=== PATIENT | male | born 1980 | race Asian ===

== ENCOUNTER → 2018-09-26 | Outpatient (CLI) | payer OTHER | LOC: LAB 16:00 | PROVIDERS: ATTEND Family Medicine | DX: Z02.79 Encounter for issue of other medical certificate (principal) | CPT/HCPCS: 36415; 86480; 86592; 87491; 87591 ==

== ENCOUNTER → 2018-11-21 | Outpatient (CLI) | payer OTHER ==
--- NOTE | 2018-11-21 15:37 | RADIOLOGY IMAGING REPORT ---
FACILITY: [facility] [place] PATIENT NAME: Anoop Aparicio : 1980 MR: [id number] V: [id number] EXAM DATE: ORDERING PHYSICIAN: ALANNA BAXTER TECHNOLOGIST: Location: [facility] Patient: Anoop Aparicio : 1980 Visit/Account:[id number] Date of Sevice: 11/21/2018 CHEST PA LAT COMPARISONS: None. ADDITIONAL PERTINENT HISTORY: Nonspecific reaction to cell mediated immunity measurement of gamma int erferon antigen response without active tuberculosis FINDINGS: Cardiomediastinal silhouette: Negative. Pulmonary vasculature: Negative. Lung khan: Negative. Pleural spaces: Negative. Osseous structures: Negative. Surrounding soft tissues: Negative. IMPRESSION: No evidence of acute cardiopulmonary disease. Report Dictated By: Agus Leon MD at 11/21/2018 3:27 PM Report E-Signed By: Agus Leon MD at 11/21/2018 3:29 PM [id number]
== END ==
LOC: RAD 15:11
PROVIDERS: ATTEND Family Medicine
DX: R76.12 Nonspecific reaction to cell mediated immunity measurement of gamma interferon antigen response without active tuberculosis (principal)
CPT/HCPCS: 71046